=== PATIENT | female | born 1965 | race Caucasian/White ===

== ENCOUNTER 2020-03-04 13:23 | Emergency (ER) | payer OTHER ==
[~2020-03-04] VITALS: Ht 167.6 cm; Wt 68.0 kg
[2020-03-04] MEDS ORDERED: MORPHINE SULFATE 4 MG/ML CPJ (NOT FOR IM USE) IV STA (15:35)
[2020-03-04] MEDS ORDERED: KETOROLAC 30MG/ML VIAL IV STA (15:35)
[2020-03-04 15:50] LABS: BASOPHILS % 0.6 % (0.0-2.0); EOSINOPHILS % 1.1 % (0.0-5.0); HEMATOCRIT. 38.7 % (36.0-48.0); HEMOGLOBIN. 12.8 g/dL (12.0-16.0); LYMPHOCYTES % 28.2 % (20.0-50.0); MEAN CORPUSCULAR HEMOGLOBIN 29.1 pg (28.0-32.0); MEAN CORPUSCULAR VOLUME 87.9 fL (81.0-99.0); MEAN PLATELET VOLUME 9.4 fl (7.4-10.4); NEUTROPHILS % 65.1 % (40.0-76.0); PLATELET 257 x1000/uL (130-400); RED CELL DISTRIBUTION WIDTH 14.2 % (11.6-14.6)
[2020-03-04 15:53] LABS: CHLORIDE 104 mEq/L (98-107)
[2020-03-04 15:55] LABS: PROTHROMBIN TIME 10.8 sec (9.6-11.0)
[2020-03-04 16:03] LABS: HCG SCREEN NEGATIVE
[2020-03-04] MEDS ORDERED: ONDANSETRON HCL 4MG/2ML INJ IV ONE ×3 (16:15→20:15)
[2020-03-04] MEDS ORDERED: KETAMINE HCL 50 MG/ML 10ML IV ONE (16:30)
[2020-03-04 22:00] LABS: CLARITY URINE CLEAR (CLEAR); COLOR URINE YELLOW (YELLOW); KETONES URINE NEGATIVE (NEGATIVE); LEUKOCYTE ESTERASE URINE NEGATIVE (NEGATIVE); NITRITE URINE NEGATIVE (NEGATIVE); OCCULT BLOOD URINE TRACE (NEGATIVE); PH URINE >=9.0 (4.5-8.0); PROTEIN URINE TRACE (NEGATIVE); SPECIFIC GRAVITY URINE 1.021 (1.005-1.030); UROBILINOGEN URINE 0.2 E.U./dL (0.2-1.0)
[2020-03-04 22:36] VITALS: BP 116/63
== END 2020-03-04 22:37 | disposition home or self-care (01) ==
LOC: ER 13:23
DX: S52.592A Other fractures of lower end of left radius, initial encounter for closed fracture (principal); W01.198A Fall on same level from slipping, tripping and stumbling with subsequent striking against other object, initial encounter; Y93.89 Activity, other specified; Y92.69 Other specified industrial and construction area as the place of occurrence of the external cause; Y99.0 Civilian activity done for income or pay
CPT/HCPCS: 25605; 36415; 73090; 73110; 73130; 80053; 81003; 84703; 85025; 85610; 96374; 96375; 96376; 99152; 99285; J1885; J2270; J2405; J3490; A4565